=== PATIENT | female | born 1985 ===

== ENCOUNTER 2016-06-28 20:52 | Emergency (ER) | payer SELFPAY ==
[2016-06-28 21:44] VITALS: BP 129/80; PULSE 58; RESP 16; TEMP 97.8; O2SAT 98
[2016-06-28] MEDS ORDERED: KETOROLAC TROMETHAMINE 30 MG/ML SOL IM ONE (21:59)
[2016-06-28] MEDS ORDERED: KETOROLAC TROMETHAMINE 30 MG/ML SOL ONE (22:04)
== END 2016-06-28 22:39 | disposition home or self-care (01) | DRG 156 ==
LOC: ED 20:52
DX: H92.01 Otalgia, right ear (principal)
CPT/HCPCS: 99282; J1885

== ENCOUNTER 2016-07-15 23:22 | Emergency (ER) | payer SELFPAY ==
[2016-07-15 23:31] VITALS: TEMP 98
[2016-07-15] MEDS ORDERED: LORAZEPAM 0.5 MG TAB PO ONE (23:50)
[2016-07-15] MEDS ORDERED: LORAZEPAM 0.5 MG TAB ONE (23:52)
[2016-07-16 00:35] VITALS: BP 124/65; PULSE 82; RESP 18; O2SAT 99
== END 2016-07-16 00:35 | disposition home or self-care (01) | DRG 881 ==
LOC: ED 23:22
DX: F32.9 Major depressive disorder, single episode, unspecified (principal); F41.9 Anxiety disorder, unspecified
CPT/HCPCS: 99283

== ENCOUNTER 2017-06-03 09:19 | Day surgery (SDC) | payer MEDICAID ==
[2017-06-03] MEDS ORDERED: PROPOFOL 500 MG/50 ML EMU IV ONE (10:02)
[2017-06-03 10:30] VITALS: TEMP 97.1
[2017-06-03 11:28] VITALS: O2SAT 98
[2017-06-03 11:32] VITALS: BP 102/71; PULSE 54; RESP 23
== END 2017-06-03 12:20 | disposition home or self-care (01) | DRG 379 ==
LOC: SURG 09:19
PROVIDERS: ATTEND Surgery
DX: K62.5 Hemorrhage of anus and rectum (principal); K57.30 Diverticulosis of large intestine without perforation or abscess without bleeding; Z80.0 Family history of malignant neoplasm of digestive organs; K59.00 Constipation, unspecified
CPT/HCPCS: J2704

== ENCOUNTER 2017-07-05 20:46 | Emergency (ER) | payer OTHER ==
[2017-07-05] MEDS ORDERED: APAP/OXYCODONE 325/5 TAB PO ONE (21:32)
[2017-07-05] MEDS ORDERED: APAP/OXYCODONE 325/5 TAB ONE (21:37)
[2017-07-05 21:42] LABS: BASOPHILS % (AUTO) 1 % (0-3); EOSINOPHILS % (AUTO) 2 % (0-9); HEMATOCRIT 42 % (35-47); HEMOGLOBIN 14.1 gm/dl (12.0-15.5); LYMPHOCYTES % (AUTO) 30.7 % (10-50); MEAN CORPUSCULAR HEMOGLOBIN 29.4 pg (27.0-32.0); MEAN CORPUSCULAR HGB CONC 33.4 gm/dl (32.0-36.0); MEAN CORPUSCULAR VOLUME 88 fL (81-99); MONOCYTES % (AUTO) 7.4 % (0-12); NEUTROPHILS % (AUTO) 58.8 % (37-80)
[2017-07-05 21:48] LABS: APPEARANCE,URINE Clear; BILIRUBIN,URINE NEGATIVE (NEGATIVE); COLOR,URINE Yellow; GLUCOSE, URINE (UA) NEGATIVE (NEGATIVE); KETONES,URINE NEGATIVE (NEGATIVE); LEUKOCYTE ESTERASE ,URINE TRACE (NEGATIVE); NITRATE,URINE NEGATIVE (NEGATIVE); OCCULT BLOOD,URINE 2+ (NEG-TRACE); PH,URINE 5.5; UROBILINOGEN,URINE 0.2 (0.2-1.0 EU)
[2017-07-05 21:56] LABS: ALBUMIN 3.4 gm/dl (3.4-5.0); BILIRUBIN,TOTAL 0.2 mg/dl (0.2-1.0); CALCIUM 8.3 mg/dl (8.5-10.1); CARBON DIOXIDE 26.3 mEq/L (21-32); CREATININE 0.64 mg/dl (0.60-1.00); POTASSIUM 3.9 mMol/L (3.5-5.1); TOTAL PROTEIN 7.9 gm/dl (6.4-8.2)
[2017-07-05 21:58] LABS: BACTERIA RARE (< 1+); CRYSTALS NEGATIVE (0-3 AVE/HPF); WBC,URINE 0-1 (0-5AV/HPF)
[2017-07-05 22:34] VITALS: BP 120/69; PULSE 91; RESP 20; TEMP 98.4; O2SAT 100
== END 2017-07-05 22:36 | disposition home or self-care (01) | DRG 392 ==
LOC: ED 20:46
DX: K57.92 Diverticulitis of intestine, part unspecified, without perforation or abscess without bleeding (principal)
CPT/HCPCS: 36415; 80053; 81001; 84703; 85025; 99283; 99284; A9270-GY

== ENCOUNTER 2017-10-27 00:10 | Emergency (ER) | payer OTHER ==
[2017-10-27] MEDS ORDERED: KETOROLAC TROMETHAMINE 30 MG/ML SOL IV ONE (00:19)
[2017-10-27] MEDS ORDERED: SODIUM CHLORIDE 0.9% FLUSH 10 ML SOL IV PRN (00:19)
[2017-10-27] MEDS ORDERED: KETOROLAC TROMETHAMINE 30 MG/ML SOL ONE (00:24)
[2017-10-27 00:29] VITALS: TEMP 98.7
[2017-10-27] MEDS ORDERED: LIDOCAINE HCL 2% (VISCOUS) 20 ML SOL MT ONE (01:05)
[2017-10-27] MEDS ORDERED: LORAZEPAM 0.5 MG TAB PO ONE (01:05)
[2017-10-27] MEDS ORDERED: MAGNESIUM HYDROXIDE 30 ML SUS PO PRN (01:06)
[2017-10-27] MEDS ORDERED: ALUMINUM/MAGNESIUM 30 ML SUS ONE (01:07)
[2017-10-27] MEDS ORDERED: LIDOCAINE HCL 2% (VISCOUS) 20 ML SOL ONE (01:08)
[2017-10-27] MEDS ORDERED: ALUMINUM/MAGNESIUM 30 ML SUS PO ONE (01:19)
[2017-10-27] MEDS ORDERED: LORAZEPAM 2 MG/ML SOL IV ONE (01:20)
[2017-10-27 01:48] LABS: BASOPHILS % (AUTO) 1 % (0-3); EOSINOPHILS % (AUTO) 3 % (0-9); HEMATOCRIT 38 % (35-47); HEMOGLOBIN 12.5 gm/dl (12.0-15.5); LYMPHOCYTES % (AUTO) 38.4 % (10-50); MEAN CORPUSCULAR HEMOGLOBIN 28.4 pg (27.0-32.0); MEAN CORPUSCULAR HGB CONC 33.1 gm/dl (32.0-36.0); MEAN CORPUSCULAR VOLUME 86 fL (81-99); MONOCYTES % (AUTO) 8.2 % (0-12); NEUTROPHILS % (AUTO) 49.9 % (37-80)
[2017-10-27 02:15] LABS: BLOOD UREA NITROGEN 14 mg/dl (7-18); CALCIUM 8.3 mg/dl (8.5-10.1); CARBON DIOXIDE 25.2 mEq/L (21-32); CHLORIDE 107 mMol/L (98-107); CREATININE 0.69 mg/dl (0.60-1.00); GLUCOSE 103 mg/dl (74-106); POTASSIUM 3.5 mMol/L (3.5-5.1); SODIUM 138 mMol/L (136-145); TROP I < 0.017 ng/ml (0.000-0.056)
[2017-10-27] MEDS ORDERED: LORAZEPAM 2 MG/ML SOL ONE (02:40)
[2017-10-27 03:51] VITALS: O2SAT 99
[2017-10-27 03:53] VITALS: BP 100/55; PULSE 63; RESP 18
== END 2017-10-27 03:32 | disposition home or self-care (01) | DRG 313 ==
LOC: ED 00:10
DX: R07.9 Chest pain, unspecified (principal); M79.602 Pain in left arm; F41.9 Anxiety disorder, unspecified; K21.9 Gastro-esophageal reflux disease without esophagitis
CPT/HCPCS: 36415; 80048; 84443; 84484; 85025; 93005; 96374; 96375; 99284; 99285; J1885; J2060; A9270-GY

== ENCOUNTER 2018-03-29 22:20 | Emergency (ER) | payer SELFPAY ==
[2018-03-29] MEDS ORDERED: MORPHINE SULFATE 10 MG/ML SOL IV ONE (22:44)
[2018-03-29] MEDS ORDERED: ONDANSETRON HCL 4 MG/2 ML SOL IV ONE (22:44)
[2018-03-29 22:50] VITALS: RESP 16
[2018-03-29] MEDS ORDERED: SODIUM CHLORIDE 0.9% FLUSH 10 ML SOL IV PRN (22:51)
[2018-03-29] MEDS ORDERED: MORPHINE SULFATE 10 MG/ML SOL ONE (22:54)
[2018-03-29] MEDS ORDERED: ONDANSETRON HCL 4 MG/2 ML SOL ONE (22:55)
[2018-03-29] MEDS ORDERED: SODIUM CHLORIDE 0.9% 1000 ML SOL IV SCH (23:00)
[2018-03-29 23:21] LABS: BASOPHILS % (AUTO) 1 % (0-3); EOSINOPHILS % (AUTO) 3 % (0-9); HEMATOCRIT 41 % (35-47); MEAN CORPUSCULAR HEMOGLOBIN 29.4 pg (27.0-32.0); MEAN CORPUSCULAR VOLUME 86 fL (81-99); MONOCYTES % (AUTO) 7.3 % (0-12); NEUTROPHILS % (AUTO) 58.3 % (37-80)
[2018-03-29 23:25] LABS: ALBUMIN 3.4 gm/dl (3.4-5.0); BILIRUBIN,TOTAL 0.3 mg/dl (0.2-1.0); CALCIUM 8.6 mg/dl (8.5-10.1); CARBON DIOXIDE 22.6 mEq/L (21-32); CREATININE 0.8 mg/dl (0.60-1.00); POTASSIUM 3.5 mMol/L (3.5-5.1); TOTAL PROTEIN 8.1 gm/dl (6.4-8.2)
[2018-03-30 00:45] VITALS: TEMP 96.1
[2018-03-30 00:57] VITALS: BP 122/77; PULSE 67; O2SAT 100
[2018-03-30 00:57] LABS: APPEARANCE,URINE Clear; BILIRUBIN,URINE NEGATIVE (NEGATIVE); COLOR,URINE Yellow; GLUCOSE, URINE (UA) NEGATIVE (NEGATIVE); KETONES,URINE TRACE (NEGATIVE); LEUKOCYTE ESTERASE ,URINE NEGATIVE (NEGATIVE); NITRATE,URINE NEGATIVE (NEGATIVE); OCCULT BLOOD,URINE 2+ (NEG-TRACE); PH,URINE 6.5; UROBILINOGEN,URINE 0.2 (0.2-1.0 EU)
[2018-03-30 01:11] LABS: BACTERIA 1+ (< 1+); CRYSTALS NEGATIVE (0-3 AVE/HPF); EPITHELIAL CELLS 0-1 (SQUAMOUS); WBC,URINE 0-2 (0-5AV/HPF)
== END 2018-03-30 01:25 | disposition home or self-care (01) | DRG 395 ==
LOC: ED 22:20
DX: K42.9 Umbilical hernia without obstruction or gangrene (principal); N83.201 Unspecified ovarian cyst, right side
CPT/HCPCS: 36415; 74177; 80053; 81001; 82150; 85025; 96365; 96366; 96374; 96375; 99284; 99285; J2270; J2405; Q9967